=== PATIENT | female | born 1985 | race Caucasian/White ===

== ENCOUNTER 2019-08-19 19:14 | Emergency (ER) | payer OTHER ==
[2019-08-19] MEDS ORDERED: Acetaminophen 325 MG Tab PO ONE (19:33)
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
== END 2019-08-19 20:25 | disposition home or self-care (01) ==
LOC: MW.ED 19:14
DX: O9A.211 Injury, poisoning and certain other consequences of external causes complicating pregnancy, first trimester (principal); S60.212A Contusion of left wrist, initial encounter; V40.5XXA Car driver injured in collision with pedestrian or animal in traffic accident, initial encounter; Z3A.01 Less than 8 weeks gestation of pregnancy
CPT/HCPCS: 73110; 99283; A9270